=== PATIENT | female | born 1955 | race Caucasian/White ===

== ENCOUNTER 2020-04-13 08:21 | Outpatient (RCR) | payer MEDICARE, SELFPAY ==
[2020-04-13] MEDS: COVID-19 VACC, MRNA(PFIZER)/PF 30 MCG/0.3 ML SYRINGE IM (13:32)
[2020-05-04] MEDS: COVID-19 VACC, MRNA(PFIZER)/PF 30 MCG/0.3 ML SYRINGE IM (13:28)
== END 2020-07-18 23:59 ==
LOC: IMMUN 08:21
PROVIDERS: PCP Internal Medicine; Visit Provider Family Medicine
DX: Z23 Encounter for immunization (principal)
CPT/HCPCS: 0001A; 0002A; 91300

== ENCOUNTER 2024-03-12 07:22 | Day surgery (SDC) | payer MEDICARE, SELFPAY ==
[2024-03-12] VITALS (8 sets, daily range): BP systolic 95–143; BP diastolic 59–66; PULSE 63–93; RESP 16–20; TEMP 36.1–36.7; O2SAT 94–100; BMI 26.5
--- NOTE | 2024-03-12 07:28 | OP.PCM_ITS ---
Problems Associated Problem List Diagnoses (1) Pain in left foot: (2) Flat foot [pes planus] (acquired), left foot: (3) Posterior tibial tendinitis, left leg: (4) Primary osteoarthritis, left ankle and foot: (5) Hallux valgus (acquired), left foot: (6) Short Achilles tendon (acquired), left ankle: Operative Report (Standard) Operative Information Date of Procedure: 03/12/24 Pre-Operative Diagnosis: 1. Short Achilles tendon, left lower extreme 2. Hallux valgus, left foot 3. Primary osteoarthritis, left foot 4. Posterior tibial tendinitis, left lower extremity 5. Pes planus, left foot 6. Pain, left foot Post-Operative Diagnosis: 1. Short Achilles tendon, left lower extreme 2. Hallux valgus, left foot 3. Primary osteoarthritis, left foot 4. Posterior tibial tendinitis, left lower extremity 5. Pes planus, left foot 6. Pain, left foot Surgery/Procedure Performed: Procedure #1: Bone marrow aspirate concentrate, left lower extremity Procedure #2: Endoscopic gastroc recession, left lower extremity Procedure #3: Calcaneal osteotomy, left lower extremity Procedure #4: Arthrodesis with cotton wedge first tarsometatarsal joint, left foot Procedure #5: Flexor digitorum longus tendon transfer, left lower extremity Procedure #6: Kidner, left lower extremity Procedure #7: Application of posterior splint, left lower extremity wedding planning internship: Yes Menagerie Caretaker: Serge Carroll DPM Tasks completed by pharmaceutical assistant: Opening & closing, Dissecting tissue, Removing tissue and Implanting device Additional ward assistant?: Yes Additional Eye Care Professional #2: Nichol Barnes PGY3 Tasks completed by ward assistant #2: Opening & closing Type of Anesthesia: General and Local RN Documented Start/Stop Times: Operation Date: 03/12/24 09:25 Case Time Into Pre-Op 03/12/24 07:25 Anesthesia Start 03/12/24 10:47 Into Room 03/12/24 10:47 Out of Pre-Op 03/12/24 10:47 Procedure Start 03/12/24 11:11 Procedure End 03/12/24 15:30 Anesthesia End 03/12/24 15:35 Out of Room 03/12/24 15:35 Into Recovery 03/12/24 15:36 Into Phase II Recovery 03/12/24 16:17 Out of Recovery 03/12/24 16:17 Out of Phase II 03/12/24 17:50 Procedure Start Time: 11:11 Procedure Stop Time: 15:30 Select all DRAINS/GRAFTS/IMPLANTS that apply: Graft Graft details: BMAC, PPP and Implanted device Implanted device details: [place] sienna, Naomie 5-0 Screws, Cotton Wedge Special Medications: Per anesthesia Estimated Blood Loss: 150 mL Fluids Replaced: Per anesthesia Specimen collected: Yes Description of specimen(s) removed: Posterior tibial tendinopathy, left lower extremity Description of surgery: Indications For Operation: Mrs. Lim is a 68-year-old who was admitted to [facility] for left foot surgery secondary to increased pain over the past 6 months. Patient is well-known to my office and has been treated conservatively with continued posterior tibial tendon pain and medial longitudinal arch collapse. The patient has failed conservative treatment consisting of shoe gear modification, over-t he-counter inserts, ankle bracing, steroid injections, oral steroids, nonsteroid anti-inflammatories. After failing conservative treatment the patient did have advanced imaging MRI that showed evidence of a chronic hypertrophic posterior tibial tendinopathy with tendon enlargement infra malleoli are measuring 4-5 times the size of the flexor digitorum longus tendon transfer. Patient had formal surgical consultation with all risk and benefits explained to her. She was agreed to move forward with elective left foot surgery. Chart review and consent was signed. Due to failing conservative treatment and continued foot pain it was deemed necessary at this time to take the patient back to the operating room to perform the above procedure to help reconstruct her foot remove the tendon that is causing her pain, get the patient back on her feet and decrease her constant pain. The nature of the problem, anticipated procedures, postop recovery/convalences and risk/complications include but not limited to infection, wound healing complications, digital amputation, hypertrophic scarring, numbness, tingling, chronic pain, CRPS, over and under correction, recurrence of deformity, DVT and or PE and the need for further surgery have been discussed in great detail with the patient. All questions have been answered to the patient's satisfaction. There are no guarantees given as to the outcome of the procedure. Description of Procedure: Under mild sedation, the patient was brought into the operating room and placed on the operating table in supine position. Once the patient was under general anesthesia with [place] mask airway, the left lower extremity was blocked using approximately 30 cc of 50-50 Exparel and 0.5% Marcaine plain. Next, a well- padded thigh tourniquet was applied to the left lower extremity. Next, the left lower extremity was prepped and draped in normal aseptic manner. Next, a timeout was then undertaken verifying the correct patient, extremity, visibility of preoperative markings, availability of the equipment. Procedure #1: Bone marrow aspirate concentrate, left lower extremity (CPT code: 68282) Next, attention was directed to the lateral aspect of the left heel. Using a 15 blade a stab incision was made to the lateral aspect of the lateral calcaneus. Continued blunt dissection was carried down with hemostats. Using a Jamshidi needle and mallet the trocar of the Jamshidi needle was inserted into the heel. 60 cc of bone marrow aspirate concentrate was removed and passed the back table and given off to the rep to be spun down for bone marrow aspirate concentrate, and PPP to be used throughout the procedure. Next, using a 4 inch Esmarch, right lower extremity was exsanguinated and elevated to 60 degrees for 1 minute. Procedure #2: Endoscopic gastroc recession, left lower extremity (CPT code: 31505) Next, attention was directed to the left lower extermity. A silfverskiold test was performed on the operating table. There was evidence of a positive Silfverskiold test for gastrocnemius equinus. Next, attention was directed to the aponeurosis of the gastrocnemius muscle. A small stab incision was placed approximately 2 to 3 cm from the gastroc insertion. Using the [place] veneer production machine operator the aponeurosis was bow strong and then advanced to the lateral aspect of the left lower extremity. Once tenting of the skin was identified a small stab incision was made with a 15 blade laterally. Using the Naomie obturator and cannula, it was advanced through both incisions. Using the Naomie 30 degree 4.0 mm scope there showed evidence of the aponeurosis of the gastrocnemius muscle. Using the rasp the muscle fibers/Sub Q were removed from the aponeurosis tissue. Using the [place] 30 degree 4.0 mm and hook blade, careful incision across the aponeurosis was made half laterally then half medially until released. After release of the aponeurosis the ankle was put through range of motion with the knee extended as well as flexed and showed to be increased past 90 in both positions. Both incisions were flushed with copious sandy of warm saline. The skin was reapproximated and closed with 3-0 nylon in simple interrupted suture technique. Procedure #3: Calcaneal osteotomy, left lower extremity (CPT code: 36010) Next, attention was directed to the lateral aspect of the calcaneus using a large C arm fluoroscopy and [place] the incision was marked out under C arm guidance with care to encompass the body of the calcaneus making sure that we were not to posterior or anterior. Once the incision was confirmed a sterile skin marker was used for marking across lateral aspect of the right heel. Using a #15 blade a full-thickness tissue down to subcutaneous tissue was performed. Continued blunt dissection was carried down to the level of the calcaneal tuber with care to observe that the peroneal tendons and sural nerve were not in the incision or osteotomy area. All crossing veins were cauterized as necessary. Next, the osteotomy was marked out using a Bovie, [place] and large C arm fluoroscopy. Next, the osteotomy was performed with sagittal saw and blade with care not to violate the medial cortex or neurovascular bundle on the medial side. Using an osteotome, the medial portion of the calcaneus was freed allowi ng mobility of the calcaneus in the medial direction. 2 K wires were implanted in the calcaneus under C arm guided fluoroscopy. 5 mm medial displacement the calcaneus was performed with the knee dorsiflexed to knock out the gastrocnemius muscle belly. Once the position of the calcaneal tuber was in place the K wires were advanced and the 2 partially-threaded 5-0 mm screws were placed per AO ulises hnique with the rep in the room for the machine bunch maker's recommendations. The incision was flushed with copious normal saline. The deep layer was reapproximated closed using 3-0 Monocryl in running locking suture technique. The subcutaneous layer was reapproximated and closed with 3-0 Monocryl in running suture technique. The skin was reapproximated closed using 3-0 nylon in horizontal mattress suture technique. Procedure #3: Capsulotomy, first metatarsophalangeal joint, left foot (CPT code: 02170) Next, attention was directed to the lateral aspect of the first tarsometatarsal joint. A full-thickness incision was prepared laterally to the big toe joint. Blunt dissection was carried down to level of the capsule and a small stab incision was performed. Using a #15 blade a capsulotomy was performed releasing the lateral ligaments and adductor tendon. The sesamoids were noted to move underneath the first metatarsal on large C-arm fluoroscopy. Procedure #4: Arthrodesis with cotton wedge first tarsometatarsal joint, left foot (CPT code: 22749) Next, attention was directed to the dorsal aspect at the level of the first tarsometatarsal joint. Skin marker was used to eliazar out the 3.5 cm incision. Using a #15 blade, full-thickness and down to subtenons tissue was performed over the incision marker. Continued blunt dissection was carried down to the level of the extensor lose longus incision. Using a retractor the EHL was retracted laterally and a sharp incision was carried down to level of bone. Continue sharp dissection was carried down and around the first tarsometatarsal joint freeing up the joint space and lateral space through sharp dissection. Osteotome was used to free up the remaining ligamental structures with care not to violate the plantar ligaments. Using a sagittal saw and blade, the joint was planed to remove all articular cartilage and further joint prep was performed with osteotome and sharp curettes. Once the joint was prepared the cotton wedge was placed in the joint to bring down the dorsiflexor nature of the first ray. The cotton wedge was removed and the incision was flushed with cold amounts normal saline. The joint was prepared using a combination of 2-0 drill for fenestration and osteotome. Prior to placing the wedge in the first tarsometatarsal joint, the bone cotton wedge was soaked in bone marrow aspirate concentrate. The wedge was placed back in the first tarsometatarsal joint, after being soaked in bone marrow aspirate concentrate for 5 minutes, and secured in place with K wires. A combination of orthogonal plating with sienna was performed per the manufacture recommendation and technique. Intermetatarsal angle 1 and 2 show to be improved after hardware was placed and reduction of the hallux valgus deformity was satisfactory. Once the hardware was placed there showed increase in the medial longitudinal arch and a rectus foot type. The incision was flushed with copious normal saline. Procedure #5: Flexor digitorum longus tendon transfer, left lower extremity (CPT code: 48995) / Procedure #6 Kidner, left lower extremity (CPT code: 83976) Next, attention was directed to the medial aspect of the right foot. A skin marker was made along the insertion and course of the posterior tibial tendon. A full-thickness this was carried down with a #15 blade to the level of the posterior tibial tendon sheath. A [place] was inserted through the sheath and continued sharp dissection was carried along the freer elevator. The posterior tibial tendon was identified and showed thickening with a teat around the level of tibia, which was also confirmed on MRI prior to the procedure. The posterior tibial tendon was removed at the level of the medial malleolus and insertion and passed the back table to be sent off for pathology. The flexor digitorum longus was identified and removed at the master knot of [place]. The end of the long flexor was whipstitched. Next, a Kidner procedure was performed using a osteoma mallet. The large os naviculare was removed via osteotome and mallet and discarded to allow for good placement for the flexor digitorum longus tendon to be transferred. AP view with C-arm fluoroscopy showed approximately 45% uncovering of the TN joint after removal of the bone. Using a large K wire, the K wire was advanced through the medial body of the navicular and out the lateral portion of the dorsal foot. The pilot manager hole was reamed to the proper depth, using the end of the K wire the whipstitch was fed and oscillated using power out of the pilot manager hole. Tension was performed allowing the foot to sit in a slight inversion position followed by insertion of a interfering Bio-Tenodesis screw. The incision was flushed with copious normal saline. The left lower extremities were put through range of motion and the transfer tendon slipped out and was unable to be secured with a Bio-Tenodesis screw. Decision on the operating room table was to do a blind tunnel technique. New whipstitch was applied to the distal end and the tunnel was redirected to shoot out the top of the navicular through the dorsal foot. Once this was obtained the suture was used to pull the flexor digitorum longus tendon through the pilot manager hole allowing the new whipstitch sutures to come out the dorsal glide hole and to be pulled back on itself to be hand tied. A new interference screw was applied into the glide hole and showed to have good interference/position at this time. The left lower extremity was put through range of motion and there showed no evidence of failure of the tendon transfer at this time. The left thigh tourniquet was deflated and reperfusion was noted initially to the right lower extremity. All bleeders were cauterized and ligated and necessary. Procedure #7: Application posterior splint, left lower extremity (CPT code: 63277) All incisions were flushed with copious normal saline. The first tarsometatarsal joint incision and flexor digitorum longus tendon transfer incision, the deep layer was reapproximated closed using 3-0 Monocryl in a running locking suture technique, the subcutaneous layer was reapproximated closed using 3-0 Monocryl in running suture technique and the skin was reapproximated closed using 3-0 nylon in horizontal mattress suture technique. The capsulotomy incision at the lateral aspect of the first metatarsophalangeal joint was reapproximated closed using 3-0 nylon in simple interrupted suture technique. Bone marrow aspirate concentrate was injected to all incisions. 2 cc of via flow injected to all incisions to help with healing. PPP spray was placed on all incisions followed by Betadine soaked Adaptic, dry sterile dressi ng and a double layer Aprk AO splint at 90 degrees was donned to the right lower extremity. The patient tolerated the procedure and anesthesia well and apparent satisfactory condition and was transported to the PACU for further monitoring prior to discharge home. Vital signs stable and vascular status intact to all digits bilateral. Need for skilled ward assistant: Serge Carroll DPM was critical to the outcome of the case. During the course of the procedure the ward assistant physician played a vital role. His intimate knowledge of my steps in the procedure aided in safe and expedient completion of the procedure. The ward assistant surgeon played a vital role in positioning particularly in obtaining the appropriate positioning. The ward assistant surgeon was also vital in the retraction of soft tissues during the exposure and protecting vital structures when needed. The surgeon was also vital and obtaining reduction and assisting with hardware placement throughout the case. Post Operative Plan: Weightbearing: Nonweightbearing to left lower extremity with assistive knee scooter and or crutches. Full weightbearing right lower extremity. Antibiotics: 2 g Ancef through the IV DVT Prophylaxis: 81 mg aspirin Ghosh: None Dressing: PPP spray, Betadine soaked Adaptic dry sterile dressing double layer [place] AO splint at 90 degrees left lower extremity X-Rays: Post-operative films taken on the operating room. Pain Medication: Percocet 5/325, Flexeril 10 mg Follow-up: Patient will follow-up in 1 week to 10 days in private office with Dr. Mckeon. Surgical Findings: 1. Patient showed evidence of soft bone at the level of the navicular with attempt to place the interference screw. Successful application of the inferior screw was made after using a blind tunnel technique for the flexor digitorum longus tendon transfer. 2. Evidence of increased medial longitudinal arch after medial Calc slide and flexor digitorum longus tendon transfer. Complications Complications: Yes Complication Details: Patient showed evidence of soft bone with attempt to use the interference screw but Bleich tunnel technique allowed for good tendon transfer. Admit VTE Documentation VTE Present on Admission: No VTE Mechan Device Prophylaxis: SCD's VTE Pharm Prophylaxis ordered?: Yes
[2024-03-12] MEDS: 0.9% Normal Saline (1000mL) 1,000 ML 15 ML IV (07:59)
[2024-03-12] MEDS: Gabapentin 600 MG Tablet PO (07:59)
[2024-03-12] MEDS: Acetaminophen 500 MG Tablet 1000 MG PO (07:59)
[2024-03-12 08:11] LABS: Hematocrit 37.6 % (37-47); Hemoglobin 12.2 g/dL (12.0-15.0); Mean Corp Hgb Conc 32.4 g/dL (32-36); Mean Corpuscular Hgb 29.5 pg (27.0-32.0); Mean Platelet Vol. 11.3 fl (6.2-12.0); POSITIVE MORPHOLOGY YES; Platelet Count 136 K/mm3 (150-450); RBC Distribution Width CV 15.3 % (11.6-14.6); RBC Distribution Width SD 50.4 fl (35.1-43.9); Red Blood Count 4.13 M/mm3 (4.2-5.4)
--- NOTE | 2024-03-12 08:17 | PRE.ANES_ITS ---
ASA Classification* ASA Classification ASA Classification: 2 Assessment & Plan Anesthesia* Anesthesia Assessment Anesthesia Assessment: Discussed sedation and/or anesthesia options, risks, benefits, and alternatives with patient/parents/legal guardian/POA. Questions invited. The patient/parents/legal guardian/POA seems to understand and agrees to proceed with anesthesia plan. Reviewed the physical assessment, medical history, allergy history and patient home medications list prior to surgery/procedure/anesthetic and documented any changes. Performed airway and anesthesia risk assessments. Anesthesia Type Anesthesia Type: General and Block Anesthesia Focused Assessment* Temperature: 96.9 F Pulse Rate: 63 Blood Pressure: 143/66 Respiratory Rate: 16 Pulse Ox: 100 Airway Assessment Mouth opens: >3 cm Mallampati Score: II Focused Labs Anesthesia Preop lab: CBC WBC Pending 03/12/24 07:45 03/12/24 RBC Pending 03/12/24 07:45 03/12/24 Hgb Pending 03/12/24 07:45 03/12/24 Hct Pending 03/12/24 07:45 03/12/24 Plt Count Pending 03/12/24 07:45 03/12/24 CHEMISTRY Magnesium Pending 03/12/24 07:45 03/12/24 COAG Pre-Assessment Diagnosis/Proposed Procedure Planned Operative Procedure(s): L) Left foot bone marrow aspirate concentrate harvest, Calcelcineal oseotomy, Kidner, Flexor digitorium longus tendon transfer, Arthrodesis of the first tarsometatarsal joint, Capsulotomy of the first metatarsal phalangeal joint, [employer] of calcaneal bone graft and possible Naveed osteotomy, Deltoid Repair Anesthesia History Anesthesia History - manpower development advisor: Anesthesia History - manpower development advisor Hx Hospitalization No 03/08/24 10:32 Any Problems With Anesthesia Yes: HARD TIME WAKING W/ 03/08/24 10:32 COLONOSCOPY, BP DROP LOW Cholinesterase deficiency No 03/08/24 10:32 You/Your Family Experience No 03/08/24 10:32 fever (hyperthermia) with Relationship Recent Exposure to Contagious No 03/12/24 07:44 Disease Does patient have nerve No 03/08/24 10:32 stimulator Patient instructed to have device shut off --Does patient have Pacemaker No 03/12/24 07:44 or ICD? When Was Last Pacemaker Check QUESTION #4 FULL TEXT: You/Your Family Experience fever (hyperthermia) with Anesthesia Last Oral Intake Last Oral intake: Last Oral Intake NPO since 06:00 03/12/24 07:44 Meds taken in AM with sips of water? Meds patient instructed to take am of surgery PONV PONV - manpower development advisor: PONV - manpower development advisor Female Yes 03/08/24 10:32 HX of Motion Sickness Yes 03/08/24 10:32 HX of N/V After Surgery No 03/08/24 10:32 Non-Smoker Yes 03/08/24 10:32 Duration of Surgery greater Yes 03/08/24 10:32 than 60 minutes Number of Risk Factors 4 03/08/24 10:32 PONV Score Severe Risk 03/08/24 10:32 Height & Weight Height & Weight: Anesthesia: Height & Weight Height 5 ft 2 in 03/12/24 07:44 Weight: 65.771 kg 03/12/24 07:44 Body Mass Index (BMI) 26.5 03/12/24 07:44 Respiratory Assessment Respiratory Assessment - manpower development advisor: Respiratory Tract Infection Hx - manpower development advisor Hx Respiratory Tract Infection No 03/08/24 10:32 STOP Sleep Apnea STOP Sleep Apnea - manpower development advisor: STOP Sleep Apnea - manpower development advisor Hx Hypertension Yes: CONTROLLED ON MED 03/08/24 10:32 Hx Sleep Apnea No 03/08/24 10:32 CPAP BIPAP Do you snore loudly (louder No 03/08/24 10:32 than talking or can be heard Do you often feel tired/ No 03/08/24 10:32 fatigued/ sleepy during daytime? Has anyone observed you stop No 03/08/24 10:32 breathing during sleep? STOP Results Negative 03/08/24 10:32 QUESTION #5 FULL TEXT : Do you snore loudly (louder than talking or can be heard through closed doors)? Tobacco Use History Tobacco Use History - manpower development advisor: Tobacco Use History - manpower development advisor Tobacco Use Smoking Status Never smoker 03/08/24 10:32 Hx Tobacco Use No 03/08/24 10:32 Years Smoking Packs Smoked per Day Smoking Cessation Date was within the last 15 years Hx Smoking Cessation Date Hx Smoking Cessation Counseling Hematologic Medial History Hematologic Hx - manpower development advisor: Hematologic Medical Hx - engineering documentation specialist Hx of Blood Transfusion No 03/08/24 10:32 Hx of Transfusion in last 3 No 03/08/24 10:32 Months Date of Last Transfusion (if within last 3 months) Ever experience any problems No 03/08/24 10:32 with transfusion(s)? Specify any problems Hx of Preganancy in last 3 No 03/08/24 10:32 Months Nurse Filling Out Transfusion VCHRISTIN 03/08/24 10:32 & Questions: Date: 03/08/24 03/08/24 10:32 Time: 10:34 03/08/24 10:32 Patient unable to answer at this time (ie. confused, unrespo /Reproduction History /Reproductive History - manpower development advisor: /Reproductive Hx- manpower development advisor Hx Now Gestational Age (in weeks): EDC: Hx Hx Para Hx Section SAB Active Medications Active Medications: Current Medications Generic Name Dose Route Start Last Admin Trade Name Freq PRN Reason Stop Dose Admin Cefazolin Sodium 2 gm/ N/A 20 mls @ 400 mls/hr 03/12/24 09:25 IV 03/12/24 09:27 PREOP ONE Sodium Chloride 1,000 mls @ 15 mls/hr 03/12/24 07:30 03/12/24 07:59 IV 03/17/24 20:49 15 mls/hr .Q48H JAGUAR Administration Protocol Insulin Human Lispro 1 - 6 unit 03/12/24 07:40 Insulin Lispro 100 Unit/Ml Insuln.Pen SC 03/12/24 15:30 Q4H PRN PRN BG>/= 180, SEE PROTOCOL Protocol PFSH Medical History Wears partial dentures Loose, teeth Post-menopausal Anxiety History of steroid therapy Arthritis History of leukemia Back pain Injury of head and neck Gastric reflux Non-smoker Shortness of breath on exertion History of edema Hypertension History of normal Holter exam Home Medications ?Medication ?Instructions ?Recorded ?Last Taken ?Type cholecalciferol (vitamin D3) 50 50 mcg PO DAILY Unknown History mcg (2,000 unit) capsule (Vitamin D3) citalopram 40 mg tablet (Celexa) 40 mg PO DAILY 03/11/24 History diclofenac potassium 50 mg tablet 50 mg PO BID 5 Unknown History folic acid 1 mg tablet 1 mg PO SUMOTUWEFRSA 5 Unknown History lisinopril 10 mg tablet 10 mg PO DAILY 03/08/2402/12 History methotrexate sodium 2.5 mg tablet 15 mg PO QWEEK 03/0803/04/24 History ondansetron 8 mg disintegrating 8 mg PO PRN 03/08/24 U nknown History tablet Allergy/AdvReac Type Severity Reaction Status Date / Time hydrochlorothiazide Allergy Severe Other Verified 03/12/24 07:43 bacitracin Allergy Hives Verified 03/12/24 07:43 Surgical History Hx of colonoscopy History of facial surgery History of bunionectomy Social History Smoking Status: Never smoker Review of Systems (Anesthesia) ROS Narrative System reviewed and no additional complaints, except as documented.
[2024-03-12 08:38] LABS: Magnesium 2.3 mg/dL (1.6-2.6)
[2024-03-12] MEDS: Magnesium 1 GM over 15 mins IV (08:52)
[2024-03-12 08:54] LABS: Bedside Glucose 83 mg/dL (74-106)
[2024-03-12 09:09] LABS: Scan Indicated on CBC? Y/N YES- FLAGS NOTED
--- NOTE | 2024-03-12 09:25 | TESH_PTH ---
PATIENT: QIAN THORNTON [place] [facility] [place] U[place][id number] AGE/SX: 68/F ROOM: RE03/12/[address]: Dr. Matt Mckeon DPM : 1955 BED: DIS: 03/12/2024 SPEC #: [id number] RECD: 03/12/24 17:17 STATUS: CB REConnor #: [id number] LEA: 03/12/24 09:[address]: Matt Mckeon DEPT: SURGICAL PATHOLOGY RECD BY: Billie Mott ENTERED: 03/15/24 08:32 SP TYPE: TENDON OTHR DR: Crystal Feliciano, AMY Tissues: Tendon and tendon sheath, NOS Procedures: Surgery Specimen Level III HEADER OPERATION: Left foot bone marrow aspirate concentrate harvest PRE-OP DIAGNOSIS: Arthrosis of left foot and ankle TISSUE SUBMITTED: Tenosynovitis left foot MICROSCOPIC DIAGNOSIS Tenosynovitis left foot: Fragment of tendon and synovial tissue with focal degenerative changes. PW. 03/16/2024 MICROSCOPIC DESCRIPTION Slides are reviewed. GROSS DESCRIPTION Received in fixative is one container labeled with the patient's name and designated Tenosynovitis left foot. The specimen consists of a piece of christine indurated tissue measuring 5.5 x 1.2 x 0.5cm. Activity Therapy Teacher sections are submitted in one cassette. 03/15/2024 TC:5 CPT:84704
[2024-03-12] MEDS: Cefazolin 2 GM in Syringe IV (10:47)
--- NOTE | 2024-03-12 11:15 | RAD_ITS ---
PROCEDURE: FOOT 2 VIEWS REASON FOR EXAM: Operating room TECHNIQUE: 2 view(s) of each foot COMPARISON: Reviewed. FINDINGS: Spot fluoroscopic imaging submitted for review with orthopedic hardware intact. Please refer to operative report for full details. Total fluoroscopic time 187 seconds. RAD/Foot 2 Views IMPRESSION: As above. Reading Location: [facility]
[2024-03-12] MEDS: Bupivacaine Mpf 0.5% 30 ML VIAL (12:30)
[2024-03-12] MEDS: Heparin 10,000 UNITS/10 ML Vial 10000 UNITS (12:30)
[2024-03-12] MEDS: Calcium Chloride 1 GM/10 ML Syringe IV (12:30)
[2024-03-12] MEDS: BUPIVACAINE LIPOSOME/PF 20 ML VIAL OPERA.SITE (12:30)
[2024-03-12] MEDS: Thrombin 5,000 IU Kit (PSA) 5,000 IU Vial 5000 IU TOPICAL (12:30)
--- NOTE | 2024-03-12 15:39 | PCM.POST.ANE ---
Anesthesia: Postop Eval I Current Vital Signs Temperature: 98.1 F Pulse Rate: 79 Blood Pressure: 95/60 Respiratory Rate: 20 Pulse Ox: 96 Assessment Airway patent: Yes Spontaneous unlabored respirations: Yes nausea: No Vomiting: No Anesthesia Complication: No Fluid Hydration Crystalloid volume administer (ml): 1,800 Total IV fluid infused: 1,800 Progress Note Anesthesia document: Postop Eval 1 completed: Yes
[2024-03-12] MEDS: Ketorolac 30 MG/ML Syringe IV (16:02)
--- NOTE | 2024-03-14 10:47 | PCM.POSTANE2 ---
Anesthesia Postop Eval I Sum Postop Eval Completion status Anesthesia document: Postop Eval 1 completed: Yes Anesthesia Postop Eval I Summary Anesthesia Postop Eval I Summary: Anesthesia Postop Eval I: Assessment Summary Airway patent Yes 03/12/24 15:40 INFORMATION [email or web address] Spontaneous unlabored Yes 03/12/24 15:40 INFORMATION [email or web address] respirations Mental status nausea No 03/12/24 15:40 INFORMATION [email or web address] Vomiting No 03/12/24 15:40 INFORMATION [email or web address] Anesthesia Postop Eval I: Fluid Summary Crystalloid volume administer 1,800 03/12/24 15:40 INFORMATION [email or web address] (ml) Colloids volume administered ( ml) Blood Product volume administered (ml) Total IV fluid infused 1,800 03/12/24 15:40 INFORMATION [email or web address] Anesthesia Postop Eval I: Summary Notes Anesthesia Complication No 03/12/24 15:40 INFORMATION [email or web address] Anesthesia Complication Comment: Post-operative progress note Anesthesia: Postop Eval II Evaluation Mental status: Awake Pain Level: 2 nausea: No Vomiting: No
--- NOTE | 2024-03-14 10:47 | POSTOPAN2_ITS ---
Anesthesia Postop Eval I Sum Postop Eval Completion status Anesthesia document: Postop Eval 1 completed: Yes Anesthesia Postop Eval I Summary Anesthesia Postop Eval I Summary: Anesthesia Postop Eval I: Assessment Summary Airway patent Yes 03/12/24 15:40 SUPERINTENDENT ELECTRIC [email or web address] Spontaneous unlabored Yes 03/12/24 15:40 SUPERINTENDENT ELECTRIC POWER.[email or web address] respirations Mental status nausea No 03/12/24 15:40 SUPERINTENDENT ELECTRIC [email or web address].[email or web address] Vomiting No 03/12/24 15:40 SUPERINTENDENT ELECTRIC [email or web address] Anesthesia Postop Eval I: Fluid Summary Crystalloid volume administer 1,800 03/12/24 15:40 SUPERINTENDENT ELECTRIC POWER.[email or web address] (ml) Colloids volume administered ( ml) Blood Product volume administered (ml) Total IV fluid infused 1,800 03/12/24 15:40 SUPERINTENDENT ELECTRIC [email or web address] Anesthesia Postop Eval I: Summary Notes Anesthesia Complication No 03/12/24 15:40 SUPERINTENDENT ELECTRIC [email or web address] Anesthesia Complication Comment: Post-operative progress note Anesthesia: Postop Eval II Evaluation Mental status: Awake Pain Level: 2 nausea: No Vomiting: No
== END 2024-03-12 17:51 | disposition home or self-care (01) ==
LOC: SDC 07:24 → AC 07:25
PROVIDERS: Anesthesiology; PCP Nurse Practitioner Family; Referring Provider Podiatrist Foot & Ankle Surgery; Visit Provider Podiatrist Foot & Ankle Surgery
PROC: (CPT 28725; principal; 2024-03-12 09:10)
DX: M19.072 Primary osteoarthritis, left ankle and foot (principal); C91.Z0 Other lymphoid leukemia not having achieved remission; M76.822 Posterior tibial tendinitis, left leg; M21.42 Flat foot [pes planus] (acquired), left foot; M20.12 Hallux valgus (acquired), left foot; M67.02 Short Achilles tendon (acquired), left ankle; I10 Essential (primary) hypertension; D69.6 Thrombocytopenia, unspecified; M85.80 Other specified disorders of bone density and structure, unspecified site; E55.9 Vitamin D deficiency, unspecified; F41.9 Anxiety disorder, unspecified; K21.9 Gastro-esophageal reflux disease without esophagitis; Z88.1 Allergy status to other antibiotic agents; Z79.899 Other long term (current) drug therapy
CPT/HCPCS: 38220; 29999; 28300; 28270; 28740; 27691; 28238; 01480; 64445; 73620; 76000; 82962; 83735; 85027; 88304; C1713; J0666; J2405; J3475